=== PATIENT | female | born 1950 | race Caucasian/White ===

== ENCOUNTER 2024-12-06 13:45 | Outpatient (RCR) | payer OTHER, MEDICARE, SELFPAY | END 2025-02-21 15:41 | disposition home or self-care (01) | PROVIDERS: PCP Family Medicine; Visit Provider Family Medicine | DX: S16.1XXD Strain of muscle, fascia and tendon at neck level, subsequent encounter (principal); Z51.89 Encounter for other specified aftercare | CPT/HCPCS: 97110; 97140; 97161 ==